=== PATIENT | male | born 1950 | race Caucasian/White ===

== ENCOUNTER → 2017-06-14 | Day surgery (SDC) | payer OTHER, MEDICARE ==
[~2017-06-14] VITALS: Ht 185.4 cm; Wt 108.9 kg
--- NOTE | 2017-06-14 17:42 | Operative Report ---
Operative/Inv Procedure Report Surgery Date: 06/14/17 Name of Procedure: Intraocular lens repositioning right eye Pre-Operative Diagnosis: Subluxated intraocular lens right eye Post-Operative Diagnosis: Same Estimated Blood Loss: none Surgeon/Sign Board Erector: Bk SCHUSTER,Greyson Degroot Anesthesia: none Complications: None Operative/Procedure Note Note: The risks, alternatives, and benefits to surgery were discussed at length with the patient. Informed consent was obtained. The patient was brought to the operating room where they were placed under sedation and a retrobulbar block was achieved to the right eye. The right eye was prepped and draped under normal sterile fashion. The IOL haptic optic junction was localized. Conjunctival peritomies were created 180 apart in the vicinity of junctions. Underlying Tenon's was removed, and hemostasis was achieved using cautery. A clear corneal paracenteses were made 180 apart at these locations. Intracameral viscoelastic was instilled. Markings were made on the sclera 1.5 mm and 2.5 mm posterior to the limbus 180 apart. Using a needle docking technique with 9-0 Prolene on a straight needle and a 25-gauge needle the haptics were lassoed, captured, and secured to the sclera correa. The knots were rotated and buried. Intracameral Miochol was instilled. There was no vitreous presenting anterior to the intraocular lens or through any of the incisions. The intraocular lens was centered and stable. Superior and inferior peripheral iridotomies were made. Viscoelastic was removed using bimanual irrigation and aspiration. The conjunctiva was reapproximated and closed using cautery. The eye held good pressure and the wounds were found to be watertight. The speculum was removed, ointment patch, and shield were placed on the eye, and the patient brought to recovery area without incident. Instructions were given to follow-up the next day for routine postoperative care.
== END ==
LOC: STS 07:00
DX: H27.111 Subluxation of lens, right eye (principal)
CPT/HCPCS: J1100; J2001; J2250